=== PATIENT | male | born 2000 | race Caucasian/White ===

== ENCOUNTER 2019-01-04 13:08 | Emergency (ER) | payer MEDICAID ==
[~2019-01-04] VITALS: Ht 177.8 cm; Wt 70.8 kg
[2019-01-04 13:15] VITALS: BP 126/72
== END 2019-01-04 15:09 | disposition home or self-care (01) ==
LOC: ER 13:08
DX: S91.134A Puncture wound without foreign body of right lesser toe(s) without damage to nail, initial encounter (principal); W22.8XXA Striking against or struck by other objects, initial encounter; Y93.02 Activity, running; Y99.8 Other external cause status; Y92.89 Other specified places as the place of occurrence of the external cause
CPT/HCPCS: 73630